=== PATIENT | female | born 1995 | race African-American/Black ===

== ENCOUNTER 2019-04-09 17:07 | Emergency (ER) | payer MEDICAID, OTHER ==
[~2019-04-09] VITALS: Ht 162.6 cm; Wt 74.0 kg
[2019-04-09] MEDS ORDERED: HYDROCODONE/ACETAMINOPHEN 5/325MG TABLET PO ONE (19:15)
[2019-04-09] MEDS ORDERED: LORAZEPAM 2MG/ML CPJ IM ONE (20:30)
[2019-04-09] MEDS ORDERED: KETOROLAC 30MG/ML VIAL IM ONE (21:45)
[2019-04-09 22:09] VITALS: BP 136/62
== END 2019-04-09 22:09 | disposition home or self-care (01) ==
LOC: ER 17:07
DX: R51 Headache (principal); M25.561 Pain in right knee; D64.9 Anemia, unspecified; F17.200 Nicotine dependence, unspecified, uncomplicated; J45.909 Unspecified asthma, uncomplicated; Z90.49 Acquired absence of other specified parts of digestive tract; Z88.0 Allergy status to penicillin; Z88.7 Allergy status to serum and vaccine; Y04.8XXA Assault by other bodily force, initial encounter
CPT/HCPCS: 72170; 73564; 73590; 96372; 99283; J1885; J2060; L1830

== ENCOUNTER 2019-10-21 10:34 | Emergency (ER) | payer MEDICAID ==
[~2019-10-21] VITALS: Ht 154.9 cm; Wt 77.0 kg
[2019-10-21 10:54] VITALS: BP 110/36
[2019-10-21] MEDS ORDERED: IBUPROFEN 600MG TABLET PO ONE (11:15)
== END 2019-10-21 13:16 | disposition home or self-care (01) ==
LOC: ER 10:34
DX: S83.8X1D Sprain of other specified parts of right knee, subsequent encounter (principal); W10.1XXD Fall (on)(from) sidewalk curb, subsequent encounter; Y93.01 Activity, walking, marching and hiking; Y92.480 Sidewalk as the place of occurrence of the external cause
CPT/HCPCS: 29505; 73560; 81025; 99283